=== PATIENT | male | born 1965 | race Caucasian/White ===

== ENCOUNTER 2024-11-02 08:52 | Outpatient (OUT) | payer MEDICARE, SELFPAY ==
[2024-11-03 05:07] LABS: Carbamazepine(Tegretol),S 6.3 ug/mL (4.0-12.0)
== END 2024-11-02 08:53 | disposition home or self-care (01) ==
LOC: LAB 08:53
PROVIDERS: PCP Nurse Practitioner Family; Visit Provider Psychiatry & Neurology Neurology
DX: Z79.899 Other long term (current) drug therapy (principal)
CPT/HCPCS: 36415; 80156; 80164

== ENCOUNTER 2024-11-06 01:14 | Emergency (ER) | payer MEDICARE, SELFPAY ==
[2024-11-06] VITALS (14 sets, daily range): BP systolic 134; BP diastolic 83; PULSE 63–76; TEMP 37.1; O2SAT 96–97
--- NOTE | 2024-11-06 01:44 | ECG_ITS ---
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 Measurements Intervals Lerna Rate: 67 P: 64 AR: 180 QRS: 41 QRSD: 94 T: 43 QT: 366 QTc: 382 Interpretive Statements 1100 Sinus rhythm 9110 normal ECG No previous ECG available for comparison Electronically Signed On 11-07-2024 6:49:05 EDT by VISHAL ROBBINS M.D.
[2024-11-06 01:49] LABS: Hematocrit 40.7 % (42.0-54.0); Hemoglobin 14.0 g/dL (14.0-18.0); Immature Granulocytes Abs Auto 0.04 10^3/uL (0.00-0.03); Immature Granulocytes Pct Auto 0.5 % (0.0-0.5); Lymphocytes Absolute Auto 3.0 10^3/uL (1.2-3.8); Mean Corpuscular HGB Conc 34.4 g/dL (29.9-35.2); Mean Corpuscular Hemoglobin 31.2 pg (25.9-34.0); Mean Corpuscular Volume 90.6 fL (80.0-94.0); Platelet Count 288 10^3/uL (150-450); Red Blood Count 4.49 10^6/uL (4.70-6.10); White Blood Count 7.6 10^3/uL (4.0-11.0)
--- NOTE | 2024-11-06 01:50 | ED.GENADUL1 ---
HPI HPI - General Adult General Chief complaint: Seizure Stated complaint: SEIZURE Time Seen by Provider: 11/06/24 01:16 Source: patient Mode of arrival: walk-in Limitations: no limitations History of Present Illness HPI narrative: 59-year-old male who lives in a long-term and is accompanied by caregiver presents for seizure. Most of the history is obtained from the caregiver. He apparently has a history of seizures but has not had one in about 5 years and had a 2-minute seizure tonight. Currently the patient has no complaints. States that he does not have a headache. He felt a seizure coming on. There was reportedly some medication changes few weeks ago. Related Data Home Medications ?Medication ?Instructions ?Recorded ?Confirmed buspirone 10 mg tablet 10 mg PO BID 11/06/24 11/06/24 carbamazepine 200 mg 200 mg PO Q12H 11/06/24 11/06/24 tablet,extended release,12 hr citalopram 10 mg tablet mg 11/06/24 divalproex 500 mg tablet,extended 500 mg PO BID 11/06/24 11/06/24 release 24 hr levocarnitine 330 mg tablet mg 11/06/24 midazolam 5 mg/spray (0.1 mL) intranasal 11/06/24 nasal spray (Nayzilam) omega 9-gzs-qyy-fish oil 300 2 cap PO BID 11/06/24 11/06/24 mg-1,000 mg capsule (Fish Oil) Allergies Allergy/AdvReac Type Severity Reaction Status Date / Time phenytoin Allergy Unknown Unknown Verified 11/06/24 01:36 Review of Systems ROS Narrative A ten point review of systems is negative except as noted above. Exam Narrative Exam Narrative: Nurses note and vital signs reviewed and patient is not hypoxic. General: The patient appears well and in no apparent distress. Patient is resting comfortably on cart. Skin: Warm, dry, no pallor noted. There is no rash noted. Head: Normocephalic, atraumatic Eye: Normal conjunctiva, no drainage Ears, Nose, Mouth, and Throat: oral mucosa is moist. Nares patent. Cardiovascular: Regular Rate and Rhythm Respiratory: Patient is in no distress, no accessory muscle use, lungs are clear to auscultation, no wheezing, rales or rhonchi Back: non-tender, no CVA tenderness bilaterally to percussion. GI: Normal bowel sounds, no tenderness to palpation, no masses appreciated. No rebound, guarding, or rigidity noted. Musculoskeletal: The patient has no evidence of calf tenderness, no pitting edema, symmetrical pulses noted bilaterally Neurological: A&O x4, normal speech; upper and lower extremity strength 5 out of 5 and symmetric Psychiatric: Cooperative Constitutional Vital Signs, click to edit/add: Last Vital Signs Temp 98.8 F 11/06/24 01:23 Pulse 63 11/06/24 03:20 Resp 16 11/06/24 03:20 BP 134/83 11/06/24 01:27 Pulse Ox 96 11/06/24 03:20 O2 Del Method Room Air 11/06/24 01:23 Course Vital Signs Vital signs: Vital Signs Temperature 98.8 F 11/06/24 01:23 Pulse Rate 76 11/06/24 01:23 Respiratory Rate 16 11/06/24 01:23 Blood Pressure 134/83 11/06/24 01:23 Pulse Oximetry 97 11/06/24 01:23 Oxygen Delivery Method Room Air 11/06/24 01:23 Temperature 98.8 F 11/06/24 01:23 Pulse Rate 63 11/06/24 03:20 Respiratory Rate 16 11/06/24 03:20 Blood Pressure 134/83 11/06/24 01:27 Pulse Oximetry 96 11/06/24 03:20 Oxygen Delivery Method Room Air 11/06/24 01:23 Medical Decision Making MDM Narrative Medical decision making narrative: CAT scan shows 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 He is acting himself and has a negative workup and he is released. Findings are discussed with the patient and his caregiver. Differential Diagnosis Differential Diagnosis: Seizure, intracranial hemorrhage Lab Data Lab results reviewed: Yes I reviewed the patient's lab results Labs: Lab Results 11/06/24 Range/Units 01:30 WBC 7.6 (4.0-11.0) 10^3/uL RBC 4.49 L (4.70-6.10) 10^6/uL Hgb 14.0 (14.0-18.0) g/dL Hct 40.7 L (42.0-54.0) % MCV 90.6 (80.0-94.0) fL MCH 31.2 (25.9-34.0) pg MCHC 34.4 (29.9-35.2) g/dL RDW 12.7 (11.0-15.0) % Plt Count 288 (150-450) 10^3/uL MPV 10.0 (9.5-13.5) fL Neut % (Auto) 46.4 (43.0-75.0) % Lymph % (Auto) 39.3 (20.5-60.0) % Leake % (Auto) 11.7 (1.7-12.0) % Eos % (Auto) 1.4 (0.9-7.0) % Baso % (Auto) 0.7 (0.2-2.0) % Neut # (Auto) 3.5 (1.4-6.5) 10^3/uL Lymph # (Auto) 3.0 (1.2-3.8) 10^3/uL Leake # (Auto) 0.9 H (0.3-0.8) 10^3/uL Eos # (Auto) 0.1 (0.0-0.7) 10^3/uL Baso # (Auto) 0.1 (0.0-0.1) 10^3/uL Abs Immat Gran (auto) 0.04 H (0.00-0.03) 10^3/uL Imm/Tot Granulo (auto) 0.5 (0.0-0.5) % Sodium 137 (136-145) mmol/L Potassium 4.0 (3.5-5.1) mmol/L Chloride 102 (98-107) mmol/L Carbon Dioxide 27.8 (21.0-32.0) mmol/L Anion Gap 11.2 BUN 14.0 (7.0-18.0) mg/dL Creatinine 0.73 (0.70-1.30) mg/dL Est GFR ( Amer) >60 (>=60 mL/min/1.73m^2) Est GFR (Non-Af Amer) >60 (>=60 mL/min/1.73m^2) BUN/Creatinine Ratio 19.2 Glucose 119 H (74-106) mg/dL Calcium 9.2 (8.5-10.1) mg/dL Imaging Data CT scan - head: Radiologist's impression: Encephalomalacia, no acute findings ECG Data Attestation: I personally reviewed and interpreted this ECG as follows: (EKG on my interpretation shows sinus rhythm with rate of 67 and no acute change) Discharge Plan Discharge Chief Complaint: Seizure Clinical Impression: Recurrent seizures Patient Disposition: Home, Self-Care Time of Disposition Decision: 03:32 Condition: Good Mode of Transportation: Private Vehicle Prescriptions / Home Meds: No Action buspirone 10 mg tablet 10 mg PO BID carbamazepine 200 mg tablet extended release 12 hr 200 mg PO Q12H divalproex 500 mg tablet extended release 24 hr 500 mg PO BID omega 0-vcr-irk-fish oil [Fish Oil] 300-1,000 mg capsule 2 cap PO BID citalopram 10 mg tablet levocarnitine 330 mg tablet Nayzilam 5 mg/spray (0.1 mL) spray,non-aerosol INTRANASAL Print Language: [place] Instructions: Recurrent Seizures in Adults (ED) Referrals: NATALIIA VALIENTE [Primary Care Provider, Unknown] - 1 week
[2024-11-06 01:58] LABS: Anion Gap 11.2; Blood Urea Nitrogen 14.0 mg/dL (7.0-18.0); Calcium 9.2 mg/dL (8.5-10.1); Carbon Dioxide 27.8 mmol/L (21.0-32.0); Chloride 102 mmol/L (98-107); Estimated GFR (African America >60 (>=60 mL/min/1.73m^2); Estimated GFR (Non-African Ame >60 (>=60 mL/min/1.73m^2); Glucose 119 mg/dL (74-106); Potassium 4.0 mmol/L (3.5-5.1); Sodium 137 mmol/L (136-145)
== END 2024-11-06 03:39 | disposition home or self-care (01) ==
PROVIDERS: Emergency Provider Emergency Medicine; PCP Nurse Practitioner Family
DX: R56.9 Unspecified convulsions (principal)
CPT/HCPCS: 36415; 70450; 80048; 85025; 93005; 99285

== ENCOUNTER 2024-11-06 12:30 | Emergency (ER) | payer MEDICARE, SELFPAY ==
[2024-11-06] VITALS (12 sets, daily range): BP systolic 122–146; BP diastolic 79–86; PULSE 80; TEMP 36.8; O2SAT 95–98; BMI 39.2
--- OUTSIDE RECORDS SUMMARY | 2024-11-06 12:38 | XMS_ITS | Encounter Summary ---
Author Organization [facility] Address [address] [place] [address] Care Team Providers Care Material Reclaimer Name Role Phone Annie Cornejo DREDGE CAPTAIN-CLOTH MERCERIZER OPERATOR Primary Care Provider Amanda Montelongo DREDGE CAPTAIN-CLOTH MERCERIZER OPERATOR Unavailable Encounter Details Date Type Department Care Team (Late Contact Info) Description 02/17/2024 [facility]phone [facility] [address], [place] [id number] Ana Maria, DO [address] [phone] Social History Tobacco Use Types Packs/Day Years Used Date Smoking Tobacco: Former Smokeless Tobacco: Never Comments:quit 25 years ago Alcohol Use Standard Drinks/Week Comments No 0 (1 standard drink = 0.6 oz pur e alcohol) Depression Answer Date Recorded PHQ-9 Total Score (Interpret ation of Total Score 1-4 = Minimal depression; 5-9 = Mild depression; 10-14 = Moderate depression; 15-19 = Moderately severe depression) 2 11/17/2023 Sex and Gender Information Value Date Recorded Sex Assigned at Not on file Legal Sex Male 3:39 PM EST Gender Identity Male 11/08/2016 1:58 PM EDT Sexual Orientation Not on file documented as of this encounter Plan of Treatment Upcoming Encounters Date Type Department Care Team (Late Contact Info) Description 12/05/2024 2:00 PM EDT Office Visit [facility] [address] [facility] [address] [place] [address] Amanda Montelongo, DREDGE CAPTAIN-CLOTH MERCERIZER OPERATOR [address] [place] [address] documented as of this encounter Visit Diagnoses Diagnosis Partial symptomatic epilepsy with complex partial seizures, intractable, without status epilepticus- Primary Long-term use of high-risk medication Intractable epilepsy without status epilepticus, unspecified epilepsy type documented in this encounter Additional Health Concerns Assessment Noted Time PHQ-9 Depression Total Score: 2 11/17/19 24 4:23 PM EDT documented as of this encounter Care Teams Material Reclaimer Relationship Specialty Start Date End Date Annie Cornejo APRN-CLOTH MERCERIZER OPERATOR [address] [place] [address] PCP - General Geriatric Medicine 03/08/23 Amanda Montelongo, DREDGE CAPTAIN-CLOTH MERCERIZER OPERATOR [address] [place] [address] Nurse Practitioner Sleep Medicine 08/03/23 documented as of this encounter
--- OUTSIDE RECORDS SUMMARY | 2024-11-06 12:38 | XMS_ITS | Clinical Summary ---
Author Organization [facility] Address [address] [place] [address] Care Team Providers Care Silvering Department Supervisor Name Role Phone Annie Cornejo ASSOCIATE TEAM PHYSICIAN-WEB FEEDER Primary Care Provider Amanda Montelongo ASSOCIATE TEAM PHYSICIAN-WEB FEEDER Unavailable Allergies Active Allergy Reactions Criticality Noted Date Comments Phenytoin Dysphoria 02/18/2017 Turn into mean tempered Medications calcium citrate-vitamin D 315-250 MG-UNIT tablet Take 4 tablets by mouth 2 times daily. Active Cyanocobalamin (VITAMIN B 12 PO) Take 1 tablet by mouth daily. Active Ferrous Sulfate (IRON) 325 (65 Fe) MG Tab Take 1 tablet by mouth daily. Active Misc. Devices Misc by Unknown route. APAP pressure 5-20 cm H2O replacement machine 08/10/23 on [employer] Kyra M P10 Active ascorbic acid 500 MG tablet Take 1 tablet by mouth daily. Active Garlic 100 MG tablet Take 1 tablet by mouth daily. Active Zinc 50 MG tabletIndications: Medication refill Take 1 tablet by mouth daily. 90 tablet 3 07/15/19 21 Active CRANBERRY PO Take 1 capsule by mouth every other day. Active cholecalciferol 50 MCG (2000 UNIT) tabletIndications: Vitamin D deficiency Take 1 tablet by mouth daily. 90 tablet 3 11/17/19 24 Active Gibsonia-3 Fatty Acids (Fish Oil) 1000 MG Cap DRIndications:Mixe d hyperlipidemia Take 2,000 mg by mouth 2 times daily. 360 capsule 2 02/23/20 24 Active Loperamide HCl 2 MG tabletIndications: Diarrhea, unspecified type Take 2 tablets by mouth X 1 dose then 1 tablet by mouth after each loose stool up to 4 tablets in 24 hours. 8 tablet 04/17/19 25 Active Ondansetron 4 MG Tab Dispersible tabletIndications: Nausea and vomiting, unspecified vomiting type Take 1 tablet by mouth every 8 hours as needed for Nausea / Vomiting. 6 tablet 04/17/19 25 Active Midazolam (Nayzilam) 5 MG/0.1ML SolutionIndication s:Traumatic brain injury, with loss of consciousness of 31 minutes to 59 minutes, subsequent encounter,Intracta ble epilepsy without status epilepticus, unspecified epilepsy type 1 spray each nostril for seizure > 5 minutes Sedating 2 Each 1 04/18/19 25 Active Citalopram 10 MG tablet 1 a day 90 tablet 2 05/10/19 25 Active Levocarnitine (Carnitor) 330 MG tablet 1 am and 2 pm 270 tablet 2 05/10/19 25 Active Divalproex (Depakote ER) 500 MG tablet ERIndications:Part ial symptomatic epilepsy with complex partial seizures, intractable, without status epilepticus,Long-t erm use of high-risk medication,Intract able epilepsy without status epilepticus, unspecified epilepsy type Take 4 tabs PO each morning and 4 tab PO each bedtime 840 tablet 2 05/10/19 25 Active carBAMazepine XR 200 MG Tab SR 12 HRIndications:Part ial symptomatic epilepsy with complex partial seizures, intractable, without status epilepticus,Long-t erm use of high-risk medication,Intract able epilepsy without status epilepticus, unspecified epilepsy type Take 2 tabs PO each morning and 3 tabs PO QHS 450 tablet 2 05/10/19 25 Active busPIRone 10 MG tablet 1 po bid 180 tablet 2 05/10/19 25 Active Active Problems Problem Noted Date Diagnosed Date History of colonic polyps 02/08/2023 Anger 01/03/2019 Obesity: body mass index of 30.0-34.9 11/02/2017 Screening for colorectal cancer 11/02/2017 Overview (11/02/2017): Added automatically from request for surgery [id number] Long-term use of high-risk medication 04/20/2017 Iron deficiency anemia 04/15/2017 Long-term current use of hig h risk medication other than anticoagulant 09/14/2016 Vitamin D deficiency 01/19/2016 Varicose veins of both lower extremities 016 Osteoarthritis of multiple joints 01/19/2016 Mixed hyperlipidemia 12/16/2014 Overview (04/19/2017): 04/15/2017 This problem started in 2014. Daniel has made lifestyle modifications and changes to his diet. He has been taking 2000 mg of Gibsonia-3 Fish Oil daily. 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 Immunizations Immunization Administration Dates Next Due COVID-19 vaccine, UNSPECIFIED 03/21/2021, 021,05/07/2020 Influenza Vaccine, (RECOMB) Quadrivalent PF 01/09/2020 Influenza Vaccine, Quadrival ent MDCK PF 01/13/2019 Influenza, injectable, quadr ivalent, preservative free 01/08/2023,01/28/2022,02/14/2021,2017 Tdap Vaccine 12/15/2021,09/27/2019 influenza, injectable, quadrivalent 04/15/2017 Family History Medical History Relation Name Comments Hypertension Brother Diabetes Father Hypertension Father Parkinson Maternal Aunt Cancer- Other Maternal Grandfather Diabetes Maternal Grandfather Breast Cancer Maternal Grandmother Heart Disease - Other Mother Lipid Disorder Mother Other - Specify Mother GERD Cancer- Other Paternal Aunt Coronary Artery Disease Paternal Grandfather Cancer- Other Paternal Grandmother esophageal skin Hypertension Paternal Uncle Multiple Sclerosis Sister Relation Name Status Comments Brother Father Maternal Aunt Maternal Grandfather esophag eal Maternal Grandmother Mother Paternal Aunt Paternal Grandfather Paternal Grandmother esophageal Paternal Uncle Sister Social History Tobacco Use Types Packs/Day Years Used Date Smoking Tobacco: Former Smokeless Tobacco: Never Tobacco Cessation:Counseling Given: Not Answered Comments:quit 25 years ago Alcohol Use Standard [...] PM EDT Sexual Orientation Not on file Last Filed Vital Signs Vital Sign Reading Time Taken Comments Blood Pressure 130/74 05/10/2024 10:15 AM EST Pulse 79 05/10/2024 10:15 AM EST Temperature 36.8 C (98.2 F) 11/17/2023 4:17 PM EDT Respiratory Rate 16 11/17/2023 4:17 PM EDT Oxygen Saturation 97% 05/10/2024 10:15 AM EST Inhaled Oxygen Concentration - - Weight 115.7 kg (255 lb) 05/10/2024 10:15 AM EST Height 172.7 cm (5' 8 ) 11/17/2023 4:17 PM EDT Body Mass Index 38.77 11/17/2023 4:17 PM EDT Plan of Treatment Upcoming Encounters Date Type Department Care Team (Late st Contact Info) Description 12/05/2024 2:00 PM EDT Office Visit [facility] [place] [address] [facility] [address] [place] [address] Amanda Montelongo, ASSOCIATE TEAM PHYSICIAN-WEB FEEDER [address] [place] [address] Health Maintenance Due Date Last Done Comments HEP B VACCINE (1 of 3 - 19+ 3-dose series) 1986 PNEUMOCOCCAL VACCINE SERIES (1 of 1 - PCV) 2017 PROSTATE CANCER SCREENING DISCUSSION 09/14/2023 09/13/2022, 09/13/2022, 09/13/2022, Additional history exists COLORECTAL CANCER SCREENING DISCUSSION 03/08/2024 03/08/2023, 01/17/2023, 11/09/2018, Additional history exists INFLUENZA VACCINE (#1) 2024 3, 01/28/2022, 02/14/2021, Additional history exists LIPID SCREENING 01/23/2028 01/22/2023, 12/2017, 04/29/2017 TETANUS 12/16/2031 12/15/2021, 09/27/2019 HIV SCREENING DISCUSSION Addressed 10/07/2017 (Decl ined) Overridden with the intention of not completing the topic COVID-19 VACCINE Discontinued 03/21/2021, 06/2020, 05/07/2020 TDAP (ADULT) Completed 12/15/2021, 09/27/2019 HEPATITIS C VIRUS SCREENING Addressed 09/13/2022 (Declined) Overridden with th e intention of not completing the topic ZOSTER (SHINGLES) VACCINE Addressed 2022 (Declined), 09/13/2022 (Declined) Overridden with the intention of not completing the topic Procedures Procedure Name Priority Date/Time Associated Diagnosis Comments SCREENING COLONOSCOPY Routine 03/08/2023 8:08 AM EST Colon cancer screening LIPID PANEL W CALCULATED LDL Today 01/22/2023 9:17 AM EDT Mixed hyperlipidemia PSA, SCREENING Today 09/13/2022 4:05 PM EDT Prostate cancer screening from Last 3 Months or Most Recently Relevant to Health Maintenance Results * SCREENING COLONOSCOPY (03/08/2023 8:08 AM EST) Anatomical Region Laterality Modality Endoscopy 03/08/2023 7:03 AM EST Narrative 03/08/2023 8:10 AM EST [facility] Gastroenterology Patient Name: Natan Russell Procedure Date: 03/08/2023 7:03 AM Date of : 1965 Admit Type: Outpatient Age: 58 Room: OR3 Gender: Male Note Status: Finalized Attending MD: Titus Navarro MD, Instrument Name: [id number] Procedure: Colonoscopy Attending Participation: I personally performed the entire procedure. Indications: High risk colon cancer surveillance: Personal history of colonic polyps, Last colonoscopy 5 years ago Providers: Titus Navarro MD Referring MD: Jonh Jain DO Complications: No immediate complications. Estimated Blood Loss: Estimated blood loss: none. Medicines: Monitored Anesthesia Care Procedure: Pre-Anesthesia Assessment: - This assessment was completed prior to the administration of sedation. After I obtained informed consent, the scope was passed under direct vision. Throughout the procedure, the patient's blood pressure, pulse, and oxygen saturations were monitored continuously. The [id number] colonoscope was introduced through the anus and advanced to the cecum, identified by appendiceal orifice and ileocecal valve. The colonoscopy was performed without difficulty. The patient tolerated the procedure well. The quality of the bowel preparation was good. The ileocecal valve, the appendiceal orifice and the rectum were photographed. Findings: The perianal and digital rectal examinations were normal. The colon (entire examined portion) appeared normal. Impression: - The entire examined colon is normal. - No specimens collected. Recommendation: - Discharge patient to home. - Resume previous diet. - Repeat colonoscopy in 5 years for surveillance. Procedure Code(s): --- Professional --- G0105, Colorectal cancer screening; colonoscopy on individual at high risk Diagnosis Code(s): --- Professional --- Z12.11, Encounter for screening for malignant neoplasm of colon Z86.010, Personal history of colonic polyps CPT copyright 2021 [employer]. All rights reserved. The codes documented in this report are preliminary and upon residential direct support professional review may be revised to meet current compliance requirements. MD Titus Tripp MD 03/08/2023 8:10:10 AM This report has been signed electronically. Number of Addenda: 0 Note Initiated On: 03/08/2023 7:03 AM us Jonh Jain DO GI/BRONCH PROCEDURE ORDERAB LES Final Result * (ABNORMAL) LIPID PANEL W CALCULATED LDL (01/22/2023 9:17 AM EDT) CHOLESTEROL 192 120 - 200 MG/DL [facility] - [address] - [place] TRIGLYCERIDE 179(H) 0 - 150 MG/DL [facility] - [address] - [place] HDL CHOLESTEROL 73(H) 26 - 63 MG/DL [facility] - [address] - [facility] LDL CHOLESTEROL, CALCULATED 83 <100 MG/DL [facility] - [address] - [facility] VLDL Cholesterol, Calculated 36(H) 5.0 - 25 MG/DL [facility] - [address] - [facility] TCHOL/HDL RATIO, MANUAL ENTER 2.63 RATIO [facility] - [address] - [facility] Comment: RISK TOTAL/HDL RATIO MEN WOMEN 1/2 AVERAGE 3.43 3.27 AVERAGE 4.97 4.44 2X AVERAGE 9.55 7.05 3X AVERAGE 23.99 11.04 Blood 01/22/2023 9:17 AM EDT 01/22/2023 9:18 AM EDT Annie Cornejo ASSOCIATE TEAM PHYSICIAN-WEB FEEDER CHEMISTRY ORDERABLES nal Result [facility] - [address] - [place] [address] [facility] [place] [address] * PSA, SCREENING (09/13/2022 4:05 PM EDT) PROSTATE SPECIFIC ANTIGEN 0.999 0 - 4 NG/ML [facility] - [address] [facility] Comment: OBTAIN BASELINE BETWEEN AGES OF 45-75 LESS THAN 1.0 ng/mL REPEAT TESTING AT 2-4 YEARS 1.0-3.0 ng/mL REPEAT TESTING AT 1-2 YEARS GREATER THAN 3.0 ng/mL REPEAT PSA,BRETT, AND WORKUP FOR BENIGN DISEASE AGE GREATER THAN 75, PSA LESS THAN 3 ng/mL REPEAT TESTING IN 1-4 YEARS Blood 09/13/2022 4:05 PM EDT 09/13/2022 4:06 PM EDT Miriam Rowe ASSOCIATE TEAM PHYSICIAN-WEB FEEDER IMMUNOLOGY ORDERABLES Fin al Result [facility] - [address] - [place] [address] [place] [address] from Last 3 Months or Most Recently Relevant to Health Maintenance Insurance MEDICAID MEDICARE [employer] PPO [facility] Care Teams Silvering Department Supervisor Relationship Specialty Start Date End Date Annie Cornejo APRN-CNP [address] [place] [address] PCP - General Geriatric Medicine 03/08/23 Amanda Montelongo APRN-WEB FEEDER [address], [place] [phone] Nurse Practitioner Sleep Medicine 08/03/23
--- OUTSIDE RECORDS SUMMARY | 2024-11-06 12:38 | XMS_ITS | Clinical Summary ---
Author Organization [facility] Address [address] [place] [address] Care Team Providers Care [employer] Dairy Farm Supervisor Name Role Phone Ambar Mock SKYLIGHTS ASSEMBLER Primary Care Provider Pa Morrissey DO Unavailable [phone] Allergies Active Allergy Reactions Criticality Noted Date Comments Phenytoin 02/18/2017 Other Reaction(s): Dysphoria Turn into mean tempered Medications busPIRone (Buspar) 10 MG tablet 05/10/2024 Active carBAMazepine XR (TEGretol XR) 200 MG 12 hr tablet Take 200 mg by mouth 2 PO QAM and 3 PO QHS 05/10/2024 Active citalopram (CeleXA) 10 MG tablet 05/10/2024 Active divalproex (Depakote ER) 500 MG 24 hr tablet Take 4 tablets by mouth in the morning and 4 tablets before bedtime. 05/10/2024 Active doxycycline (Vibramycin) 100 MG capsule 05/10/2024 Acti ve levOCARNitine (Carnitor) 330 MG tablet 05/10/2024 Active Nayzilam 5 MG/0.1ML solution 04/18/2024 Active omega-3 (Fish Oil) 1000 MG capsule 05/09/2024 Active Cranberry 50 MG chewable tablet Chew Acti ve cyanocobalamin (Vitamin B-12) 50 MCG tablet Take by mouth Daily Active Ferrous Sulfate Dried (FERROUS SULFATE CR PO) Take by mouth Active Garlic 100 MG tablet Take by mouth Active zinc 50 MG tablet Take by mouth Active Ascorbic Acid (vitamin C) 250 MG tablet Take 500 mg by mouth Daily Active Active Problems No known active problems Encounters Date Type Department Care Team Description 08/15/2024 Telephone [facility] [address] [place] [phone] Pa Morrissey DO ROUTINE EEG from Last 3 Months Family History Medical History Relation Name Comments No Known Problems Father No Known Problems Mother Relation Name Status Comments Father Mother Social History Tobacco Use Types Packs/Day Years Used Date Smoking Tobacco: Never Smokeless Tobacco: Never Tobacco Cessation:Counseling Given: Not Answered Sex and Gender Information Value Date Recorded Sex Assigned at Not on file Legal Sex Male 12:13 PM EST Gender Identity Not on file Sexual Orientation Not on file Last Filed Vital Signs Vital Sign Reading Time Taken Comments Blood Pressure 117/76 08/01/2024 2:10 PM EDT Pulse 64 08/01/2024 2:10 PM EDT Temperature - - Respiratory Rate - - Oxygen Saturation - - Inhaled Oxygen Concentration - - Weight 111 kg (245 lb) 08/01/2024 2:10 PM EDT Height 172.7 cm (5' 8 ) 08/01/2024 2:10 PM EDT Body Mass Index 37.25 08/01/2024 2:10 PM EDT Plan of Treatment Health Maintenance Due Date Last Done Comments CT Colonography 1967 FIT-DNA 1967 FIT 1967 FOBT 1967 Sigmoidoscopy 1967 Influenza Vaccine (#1) 2024 , 01/28/2022, 02/14/2021, Additional history exists Colonoscopy 03/08/2033 03/08/2023, 11/15/2017 Colorectal Cancer Screening 03/08/2033 Insurance [address] [place] [address] [employer] MEDICARE ADVANTAGE MEDICAID [place] Care Teams Research Dairy Farm Supervisor Relationship Specialty Start Date End Date Ambar Mock NP [facility] [place] [address] [place] [address] PCP - General Family Medicine 08/01/24 Pa Morrissey DO [address] [place] [address] Referring Physician Neurology 08/01/24
--- OUTSIDE RECORDS SUMMARY | 2024-11-06 12:38 | XMS_ITS | Encounter Summary ---
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 Name Role Phone Annie Cornejo DINING ROOM HOST/HOSTESS-OCC THERAPIST Primary Care Provider Amanda Montelongo DINING ROOM HOST/HOSTESS-OCC THERAPIST Unavailable Encounter Details Date Type Department Care Team (Late Contact Info) Description [facility]20[facility] [address] [place], [place] [id number] Ana Maria, DO [address] [phone] Social History Tobacco Use Types Packs/Day Years [...] Description 12/05/2024 2:00 PM EDT Office Visit [facility] [address] [facility] [address] [place] [address] Amanda Montelongo, DINING ROOM HOST/HOSTESS-OCC THERAPIST [address] [place] [address] documented as of this encounter Visit Diagnoses Not on filedocumented in this encounter Additional Health Concerns Assessment Noted Time PHQ-9 Depression Total Score: 2 11/17/19 24 4:23 PM EDT documented as of this encounter Care Teams Hydraulic Rock Drill Operator Relationship Specialty Start Date End Date Annie Cornejo APRN-ELISE [address] [place] [address] PCP - General Geriatric Medicine 03/08/23 Amanda Montelongo, DINING ROOM HOST/HOSTESS-OCC THERAPIST [address] [place] [address] Nurse Practitioner Sleep Medicine 08/03/23 documented as of this encounter
[2024-11-06 13:39] LABS: Hematocrit 41.5 % (42.0-54.0); Hemoglobin 14.0 g/dL (14.0-18.0); Immature Granulocytes Abs Auto 0.03 10^3/uL (0.00-0.03); Immature Granulocytes Pct Auto 0.4 % (0.0-0.5); Lymphocytes Absolute Auto 1.7 10^3/uL (1.2-3.8); Mean Corpuscular HGB Conc 33.7 g/dL (29.9-35.2); Mean Corpuscular Hemoglobin 30.6 pg (25.9-34.0); Mean Corpuscular Volume 90.8 fL (80.0-94.0); Platelet Count 297 10^3/uL (150-450); Red Blood Count 4.57 10^6/uL (4.70-6.10); White Blood Count 8.2 10^3/uL (4.0-11.0)
[2024-11-06] MEDS: DIVALPROEX SODIUM 500 MG TAB.ER.24H 1000 MG PO (13:45)
[2024-11-06] MEDS: 0.9 % SODIUM CHLORIDE 1,000 ML 1000 ML IV (13:45)
[2024-11-06 13:49] LABS: Alanine Aminotransferase 59 U/L (16-63); Albumin Globulin Ratio 0.9; Albumin Level 3.8 g/dL (3.4-5.0); Alkaline Phosphatase 62 U/L (46-116); Anion Gap 13.8; Aspartate Amino Transferase 40 U/L (15-37); Blood Urea Nitrogen 13.0 mg/dL (7.0-18.0); Calcium 9.1 mg/dL (8.5-10.1); Carbon Dioxide 26.8 mmol/L (21.0-32.0); Chloride 102 mmol/L (98-107); Estimated GFR (African America >60 (>=60 mL/min/1.73m^2); Estimated GFR (Non-African Ame >60 (>=60 mL/min/1.73m^2); Globulin 4.1 g/dL; Glucose 116 mg/dL (74-106); Potassium 4.6 mmol/L (3.5-5.1); Sodium 138 mmol/L (136-145); Total Protein 7.9 g/dL (6.4-8.2)
--- NOTE | 2024-11-06 14:01 | ED.SEIZURE1 ---
HPI - Seizure General Chief Complaint: Seizure Stated Complaint: SEIZURE Time Seen by Provider: 11/06/24 12:52 Source: patient and caregiver Source comment: Guardian at bedside Mode of arrival: ambulance Limitations: no limitations History of Present Illness HPI Narrative: The patient is a 59-year-old male with history of mental disability with a caregiver at the bedside is coming to us after he had a seizure just before arrival, the patient apparently have history of seizures and he usually take Depakote. And apparently over the last almost few weeks his Depakote was decreased from 2 g twice daily to 1 g daily, the patient had a seizure also according to the caregiver yesterday The patient at the moment is not postictal he had no complaint there was no concern of any head trauma Seizure History: Yes Place: home Related Data Home Medications ?Medication ?Instructions ?Recorded ?Confirmed buspirone 10 mg tablet 10 mg PO BID 11/06/24 11/06/24 carbamazepine 200 mg 200 mg PO Q12H 11/06/24 11/06/24 tablet,extended release,12 hr citalopram 10 mg tablet mg 11/06/24 levocarnitine 330 mg tablet mg 11/06/24 midazolam 5 mg/spray (0.1 mL) intranasal 11/06/24 nasal spray (Nayzilam) omega 4-tjq-btq-fish oil 300 2 cap PO BID 11/06/24 11/06/24 mg-1,000 mg capsule (Fish Oil) Previous Rx's ?Medication ?Instructions ?Recorded divalproex 500 mg tablet,extended 2,000 mg (4 x 500 mg) PO BID 10 11/06/24 release 24 hr days #80 tabs midazolam 5 mg/spray (0.1 mL) 5 mg (0.1 mL) intranasal .As 11/06/24 nasal spray (Nayzilam) directed #2 ea Allergies Allergy/AdvReac Type Severity Reaction Status Date / Time phenytoin Allergy Unknown Unknown Verified 11/06/24 01:36 Review of Systems ROS Status of ROS 10 or more systems reviewed and unremarkable except as noted in history and below PFSH PFSH Social History Little interest or pleasure in doing things: not at all Feeling down, depressed, or hopeless: not at all Exam Narrative Exam Narrative: Nurses notes and vital signs reviewed and patient is not hypoxic. General: Well-appearing and in no apparent distress. Skin: Warm, dry, no pallor noted. No rash. Head: Normocephalic, atraumatic. Neck: Supple, non-tender. Eye: Pupils are equal, round and EOMI. No scleral icterus. Ears, Nose, Mouth, and Throat: Oral mucosa is moist, no posterior oropharynx erythema, uvula is mid-line Cardiovascular: Regular Rate and Rhythm without murmur, gallop or rub. Respiratory: No accessory muscle use or respiratory distress. Lungs are clear to auscultation, no wheezing, rales or rhonchi Chest Wall: no tenderness Back: No midline thoracic or lumbar vertebral tenderness. No CVA tenderness Musculoskeletal: normal ROM, no calf or popliteal tenderness, no lower extremity edema/swelling GI: Abdomen is soft, non-distended. Normal bowel sounds. No masses appreciated. No tenderness to palpation. No rebound, guarding, or rigidity noted. Neurological: A&O x1 No cranial nerve dysfunction observed. No truncal ataxia. Moves all extremities. Sensation intact. Psychiatric: Cooperative and interactive. Normal mood and affect. Constitutional Vital Signs, click to edit/add: Last Vital Signs Temp 98.2 F 11/06/24 12:43 Pulse 80 11/06/24 12:43 Resp 18 11/06/24 12:43 BP 132/80 11/06/24 14:30 Pulse Ox 98 11/06/24 14:30 O2 Del Method Room Air 11/06/24 13:11 Course Vital Signs Vital signs: Vital Signs Temperature 98.2 F 11/06/24 12:43 Pulse Rate 80 11/06/24 12:43 Respiratory Rate 18 11/06/24 12:43 Blood Pressure 130/80 11/06/24 12:43 Pulse Oximetry 98 11/06/24 12:43 Oxygen Delivery Method Room Air 11/06/24 12:43 Temperature 98.2 F 11/06/24 12:43 Pulse Rate 80 11/06/24 12:43 Respiratory Rate 18 11/06/24 12:43 Blood Pressure 132/80 11/06/24 14:30 Pulse Oximetry 98 11/06/24 14:30 Oxygen Delivery Method Room Air 11/06/24 13:11 MDM - Seizure MDM Narrative Medical decision making narrative: The patient CBC and chemistry showed no acute pathology The patient EKG was showing sinus rhythm with a heart rate of [address] elevation or depression The patient was provided with an extra dose of Depakote here in the ER It is seem that the patient since his dose was lowered because he was not having any seizure he started having more seizures right now would recommend the patient to go back to his 2 g twice daily extended release Depakote dosing until he is evaluated by neurologist and increase in the dose need to be lowered I recommend that to be lowered in the lower increments The patient also does have Nyzilam to be used by the caregiver with the nasal spray in case the patient had a seizure and right now I did refill that to provide help for the caregiver in case the patient have a seizure in the outpatient setting The patient is to follow up with primary care physician in next 2-3 days or to return to the emergency department should any of the signs or symptoms worsen or new symptoms develop. The patient agrees with the following Diagnosis and Treatment plan and the patient will be discharged home. Lab Data Labs: Lab Results 11/06/24 Range/Units 13:18 WBC 8.2 (4.0-11.0) 10^3/uL RBC 4.57 L (4.70-6.10) 10^6/uL Hgb 14.0 (14.0-18.0) g/dL Hct 41.5 L (42.0-54.0) % MCV 90.8 (80.0-94.0) fL MCH 30.6 (25.9-34.0) pg MCHC 33.7 (29.9-35.2) g/dL RDW 12.9 (11.0-15.0) % Plt Count 297 (150-450) 10^3/uL MPV 10.2 (9.5-13.5) fL Neut % (Auto) 69.2 (43.0-75.0) % Lymph % (Auto) 20.6 (20.5-60.0) % Kleberg % (Auto) 8.7 (1.7-12.0) % Eos % (Auto) 0.4 L (0.9-7.0) % Baso % (Auto) 0.7 (0.2-2.0) % Neut # (Auto) 5.7 (1.4-6.5) 10^3/uL Lymph # (Auto) 1.7 (1.2-3.8) 10^3/uL Kleberg # (Auto) 0.7 (0.3-0.8) 10^3/uL Eos # (Auto) 0.0 (0.0-0.7) 10^3/uL Baso # (Auto) 0.1 (0.0-0.1) 10^3/uL Abs Immat Gran (auto) 0.03 (0.00-0.03) 10^3/uL Imm/Tot Granulo (auto) 0.4 (0.0-0.5) % Sodium 138 (136-145) mmol/L Potassium 4.6 (3.5-5.1) mmol/L Chloride 102 (98-107) mmol/L Carbon Dioxide 26.8 (21.0-32.0) mmol/L Anion Gap 13.8 BUN 13.0 (7.0-18.0) mg/dL Creatinine 0.63 L (0.70-1.30) mg/dL Est GFR ( Amer) >60 (>=60 mL/min/1.73m^2) Est GFR (Non-Af Amer) >60 (>=60 mL/min/1.73m^2) BUN/Creatinine Ratio 20.6 Glucose 116 H (74-106) mg/dL Calcium 9.1 (8.5-10.1) mg/dL Total Bilirubin 0.3 (0.2-1.0) mg/dL AST 40 H (15-37) U/L ALT 59 (16-63) U/L Alkaline Phosphatase 62 (46-116) U/L Total Protein 7.9 (6.4-8.2) g/dL Albumin 3.8 (3.4-5.0) g/dL Globulin 4.1 g/dL Albumin/Globulin Ratio 0.9 Discharge Plan Discharge Chief Complaint: Seizure Clinical Impression: Recurrent seizures Patient Disposition: Home, Self-Care Time of Disposition Decision: 14:01 Condition: Good Prescriptions / Home Meds: New divalproex 500 mg tablet extended release 24 hr 2,000 mg PO BID 10 Days Qty: 80 0RF Nayzilam 5 mg/spray (0.1 mL) spray,non-aerosol 5 mg intranasal .As directed Qty: 2 0RF Rx Instructions: 5 mg which is 1 spray as a single dose in 1 nostril as needed for seizure and may repeat the same dose after 10 minutes but the maximum dose is 10 mg which is 2 spray per catalino episode Discontinued divalproex 500 mg tablet extended release 24 hr 500 mg PO BID No Action buspirone 10 mg tablet 10 mg PO BID carbamazepine 200 mg tablet extended release 12 hr 200 mg PO Q12H omega 3-ezu-yom-fish oil [Fish Oil] 300-1,000 mg capsule 2 cap PO BID citalopram 10 mg tablet levocarnitine 330 mg tablet Nayzilam 5 mg/spray (0.1 mL) spray,non-aerosol INTRANASAL Print Language: Serbian Instructions: Epilepsy (DC) Referrals: Domenico Bright DO [Physician, Neurology] - 1 week NATALIIA VALIENTE [Primary Care Provider, Unknown] - 1 week Discharge Date/Time: 11/06/24 14:44
== END 2024-11-06 14:44 | disposition home or self-care (01) ==
PROVIDERS: Emergency Provider Emergency Medicine; PCP Nurse Practitioner Family
DX: G40.909 Epilepsy, unspecified, not intractable, without status epilepticus (principal); F79 Unspecified intellectual disabilities; Z79.899 Other long term (current) drug therapy
CPT/HCPCS: 36415; 70450; 80048; 80053; 85025; 93005; 99284; 99285